=== PATIENT | female | born 1980 | race African-American/Black ===

== ENCOUNTER 2023-03-29 09:24 | Outpatient (CLI) | payer BC | END 2023-03-29 09:25 | disposition home or self-care (01) | LOC: CSHMAMMO 09:24 | PROVIDERS: ATTEND Nurse Practitioner Family | DX: Z12.31 Encounter for screening mammogram for malignant neoplasm of breast (principal); Z80.3 Family history of malignant neoplasm of breast | CPT/HCPCS: 77063; 77067 ==

== ENCOUNTER 2025-02-18 08:25 | Outpatient (CLI) | payer BC | END 2025-02-18 08:26 | disposition home or self-care (01) | LOC: CSHMAMMO 08:25 | PROVIDERS: ATTEND Family Medicine | DX: Z12.31 Encounter for screening mammogram for malignant neoplasm of breast (principal); Z80.3 Family history of malignant neoplasm of breast | CPT/HCPCS: 77063; 77067 ==